=== PATIENT | male | born 1965 | race Caucasian/White ===

== ENCOUNTER 2020-04-09 18:03 | Emergency (ER) | payer OTHER, SELFPAY ==
[2020-04-09] VITALS (17 sets, daily range): BP systolic 132–154; BP diastolic 88–106; PULSE 74–104; RESP 12–23; TEMP 36.2; O2SAT 92–100
--- NOTE | ~2020-04-09 | XR_ITS ---
EXAMINATION: XR chest 2V DATE: 04/09/2020 19:01 INDICATION: Chest pain and shortness of breath TECHNIQUE: AP and lateral views of the chest are obtained. COMPARISON: None available FINDINGS: The lungs are free of acute opacities. There is no pleural effusion or pneumothorax. The ca rdiomediastinal silhouette is normal. There is moderate thoracic spondylosis. IMPRESSION: 1. No acute cardiopulmonary abnormality. Reviewed, dictated and finalized at location A. PRESIDENT COMPLIANCE
--- NOTE | 2020-04-09 18:06 | ECG_ITS ---
Measurements Intervals [place] Rate: 106 P: 63 FL: 152 QRS: -35 QRSD: 75 T: 54 QT: 296 QTc: 394 Interpretive Statements SINUS TACHYCARDIA LEFT AXIS DEVIATION RSR' IN V1 OR V2, CONSIDER RIGHT VENTRICULAR HYPERTROPHY OR RIGHT VCD BASELINE ARTIFACT- I, II, III, AVR, AVL, AVF, V1-V2 BORDERLINE ECG Electronically Signed On 04-10-2020 9:17:15 [employer] by Ministerio Morris D.O.
--- NOTE | 2020-04-09 18:34 | PC.NURSE ---
Attempts x3 unsuccessful. Pt reports h/o IV drug use, last using on Saturday.
--- NOTE | 2020-04-09 18:35 | PC.NURSE ---
this RN to bedside. attempted IV access x 3 without success. Aníbal PATEL aware.
--- NOTE | 2020-04-09 18:36 | ED.CHESTPAIN ---
HPI - Chest Pain General Chief Complaint: Chest Pain Stated Complaint: chest tightness Time Seen by Provider: 04/09/20 18:22 Source: patient Mode of arrival: EMS Limitations: no limitations History of Present Illness HPI narrative: This is a 55 year old male that presents to the ER via EMS for chest tightness that started just prior to arrival. Reports history of anxiety and that he has trouble breathing sometimes when he gets anxious. Reports he takes Zoloft and Seroquel for his psychiatric history. Patient is currently very anxious and hyperventilating. Coached on slowing his breathing. Denies fever, cough or swelling in his legs. Related Data Home Medications Medication Instructions Recorded Confirmed Seroquel 04/09/20 Zoloft 04/09/20 Allergies Allergy/AdvReac Type Severity Reaction Status Date / Time No Known Allergies Allergy Verified 04/09/20 18:16 Review of Systems Review of Systems: Narrative: CONSTITUTIONAL: Denies fever CARDIOVASCULAR: Reports chest pain. Denies edema. RESPIRATORY: Reports dyspnea. PSYCHIATRIC: Reports anxiety All systems reviewed & are unremarkable except as noted in HPI and below PMFSH Past Medical History Medical History (Updated 04/09/20 @ 20:29 by Becki Flores PA-C) History of anxiety Social History Social History (Updated 04/09/20 @ 18:42 by Becki Flores PA-C) Substance use: current Gender identity (if verbalized by the patient): Male Exam Narrative: Exam Narrative: GENERAL: Well-appearing, well-nourished, anxious HEAD: Normocephalic, atraumatic. EYES: EOMI. ENT: Mucous membranes moist. Oropharynx without tonsillar hypertrophy exudate or other lesions. NECK: Supple. No adenopathy or masses. CHEST: Clear to auscultation. No respiratory distress. No wheezes rales or rhonchi HEART: Regular rate and rhythm. No murmur heard. Normal peripheral pulses. EXTREMITIES: Normal range of motion. No edema. SKIN: Warm, dry, no rash. NEURO: No focal deficits. Alert and oriented x3. PSYCH: Anxious Course Vital Signs Vital signs: Vital Signs Temperature 97.1 F L 04/09/20 18:20 Pulse Rate 94 04/09/20 18:20 Respiratory Rate 20 04/09/20 18:20 Blood Pressure 136/88 04/09/20 18:20 Pulse Oximetry 97 12/12/20 18:20 Temperature 97.1 F L 04/09/20 18:20 Pulse Rate 81 04/09/20 19:28 Respiratory Rate 18 04/09/20 19:28 Blood Pressure 137/100 H 04/09/20 19:28 Pulse Oximetry 96 04/09/20 19:28 MDM - Chest Pain MDM Narrative Medical decision making narrative: Patient presents the emergency department for chest tightness that started just prior to arrival. Patient with history of anxiety and was obviously anxious and hyperventilating on arrival. He reports relief with Ativan. Resting comfortably in bed. His vitals are stable. CBC and metabolic panel without concerning findings. EKG is without concerning changes. Troponin is negative. Chest x-ray is without acute findings. Patient's heart score is a 2. He is stable and felt appropriate for further outpatient evaluation. He was given warnings to return to the ER Lab Data Attestation: I reviewed the patient's lab results. Result diagrams: 04/09/20 19:17 04/09/20 19:17 Labs: Lab Results 04/09/20 04/09/20 04/09/20 Range/Units 19:17 19:17 19:17 WBC 8.9 (4.5-10.0) K/mm3 RBC 4.35 L (4.6-6.20) M/mm3 Hgb 14.4 (14.0-18.0) g/dL Hct 41.4 L (42.0-52.0) % MCV 95.2 (80-100) fl MCH 33.1 (26-34) pg MCHC 34.8 (32-36) g/dl RDW 12.3 (11.5-14.5) % Plt Count 198 (150-375) k/mm3 MPV 9.3 (7.4-10.4) fl Immature Gran % (Auto) 0.2 (0-0.5) % Neut % (Auto) 71.0 (45.5-73.1) % Lymph % (Auto) 18.1 L (18.3-44.2) % Wetzel % (Auto) 9.0 H (2.6-8.5) % Eos % (Auto) 1.1 (0-4.4) % Baso % (Auto) 0.6 (0.2-1.2) % Lymph # (Auto) 1.60 (0.9-3.2) K/mm3 Wetzel # (Auto) 0.8 H (0.1-0.6) K/mm3 Eos # (Auto) 0.1
--- NOTE | 2020-04-09 18:49 | PC.NURSE ---
to radiology via stretcher. Pt is accompanied by [facility] Officers.
[2020-04-09] MEDS: ASPIRIN 81 MG CHEWABLE TABLET 324 MG PO (19:25)
[2020-04-09] MEDS: SODIUM CHLORIDE 0.9% IV 1,000 ML 999 ML IV CONT (19:25)
[2020-04-09] MEDS: LORazepam INJ (*CRX) 2 MG/ML VIAL 0.5 MG IV PUSH (19:25)
--- NOTE | 2020-04-09 19:28 | PC.NURSE ---
Report to AMANDA Buckley, to continue care.
[2020-04-09 19:32] LABS: Basophils Absolute Auto 0.1 K/mm3 (0.0-0.1); Basophils Percent Auto 0.6 % (0.2-1.2); Eosinophils Absolute Auto 0.1 K/mm3 (0-0.3); Eosinophils Percent Auto 1.1 % (0-4.4); Hematocrit 41.4 % (42.0-52.0); Hemoglobin 14.4 g/dL (14.0-18.0); Immature Granulocyte Absolute 0.02 K/mm3 (0.00-0.031); Immature Granulocyte Percent A 0.2 % (0-0.5); Lymphocytes Percent Auto 18.1 % (18.3-44.2); Mean Corpuscular HGB Conc 34.8 g/dl (32-36); Mean Corpuscular Hemoglobin 33.1 pg (26-34); Mean Corpuscular Volume 95.2 fl (80-100); Mean Platelet Volume 9.3 fl (7.4-10.4); Monocytes Absolute Auto 0.8 K/mm3 (0.1-0.6); Neutrophils Absolute Auto 6.3 K/mm3 (1.3-6.7); Platelet Count Result 198 k/mm3 (150-375); Red Blood Count 4.35 M/mm3 (4.6-6.20); Red Cell Distribution Width 12.3 % (11.5-14.5); White Blood Count 8.9 K/mm3 (4.5-10.0)
[2020-04-09 19:42] LABS: Prothrombin Time 14.2 Seconds (11.1-14.7)
[2020-04-09 19:43] LABS: Partial Thromboplastin Time 29.8 SECONDS (22.3-36.8)
[2020-04-09 19:49] LABS: Anion Gap 9 mmol/L (8-16); Blood Urea Nitrogen 27 mg/dL (9-20); Calcium 9.3 mg/dL (8.4-10.2); Carbon Dioxide 24 mmol/L (22-30); Chloride 106 mmol/L (98-107); Estimated CRCL calculation 86 ml/min; Estimated Glomerular Filt Rate > 60; Glucose 142 mg/dL (75-110); Potassium 3.7 mmol/L (3.4-5.0); Sodium 139 mmol/L (137-145)
[2020-04-09 19:59] LABS: Troponin I < 0.012 ng/mL (0.000-0.034)
== END 2020-04-09 20:44 | disposition home or self-care (01) ==
PROVIDERS: Emergency Provider Emergency Medicine
DX: F41.9 Anxiety disorder, unspecified (principal)
CPT/HCPCS: 36415; 71046; 80048; 84484; 85025; 85610; 85730; 93005; 96361; 96374; 99284; A9270; J2060; J7030